=== PATIENT | female | born 1980 | race Caucasian/White ===

== ENCOUNTER 2018-04-06 00:55 | Emergency (ER) | payer BC, SELFPAY ==
[2018-04-06 00:56] VITALS: BP 110/78; PULSE 87; RESP 14; TEMP 36.4; O2SAT 98; BMI 35.4
--- NOTE | 2018-04-06 01:06 | ED.RN ---
THIS NURSE CALLED FOR AN EKG FOR THIS PATIENT, WHILE THIS NURSE WAS STILL TRIAGING THE PATIENT, DR SANTANA CAME IN AND STATED THAT WE WOULD JUST MONITOR THE PATIENT FOR 30-60 MINUTES, NO EKG WAS DONE PER DR SANTANA
--- NOTE | 2018-04-06 02:03 | ED.VISSUMM ---
- ER Visit Summary Date of Service: 04/06/18 Chief Complaint: Palpitations History of Present Illness: The patient is a 37 F who states she did not feel well antonio from bed and felt palpitations. She did not check her pulse to determine rate. She states she had one cup of coffee morning. She does not drink caffeinated beverages. She denies fever, chills night sweats. She denies weight loss. She denied nausea, diaphoresis or shortness of breath. She denies leg pain, swelling discoloration. She denies any URI symptoms. She was seen September 2016 for similar symptoms and had a negative workup. She states she recently had similar symptoms with transported to [place] emergency department and workup at that time was negative. Physical Examination: Vital signs noted and normal. BMI 35.4. HEENT exam is unremarkable. Heart is regular without murmur, gallop or rub. S1 and S2 are normal. Lungs are clear to auscultation with good movement of air bilaterally. Abdomen soft nontender. Bowel sounds present normal. There is no asymmetry, swelling, discoloration, leg vein distention, palpable cords or tenderness along the distribution of the deep venous system. Distal pulses upper and lower extremities symmetric. Alert oriented x3 with a nonfocal neurologic exam. Test Results: Monitor reveals a sinus rhythm. She was observed for 1 hour with no ectopy or tachycardia noted. Emergency Department Course and Treatment: Since this is her third ER visit in the 2 prior resulted in negative workup and presently her vitals are normal we will place on monitor and observe for any ectopy or rapid heartbeat. Treatment Plan: Appropriate home-going instructions avoid caffeinated beverages Disposition: Discharged home in stable condition with parents Impression: Palpitations This note was generated with [employer] a Division of [employer] software. It may contain incorrect words, spelling, and punctuation that were not noted in review of the chart prior to signing ED Disposition - Plan for ED Patient: Disposition: Home or Assisted Living Chief Complaint: Palpitations Instructions: ED Palpitations Referrals: Enrike Lund MD [Primary Care Provider] - As Needed
[2018-04-06 02:13] VITALS: BP 119/78; PULSE 74; RESP 20; O2SAT 97
== END 2018-04-06 02:13 | disposition home or self-care (01) ==
PROVIDERS: Emergency Provider Emergency Medicine; Family Provider Family Medicine; PCP Family Medicine
DX: R00.2 Palpitations (principal); E66.9 Obesity, unspecified; R03.0 Elevated blood-pressure reading, without diagnosis of hypertension
CPT/HCPCS: 99282

== ENCOUNTER → 2018-06-29 07:07 | Outpatient (CLI) | payer BC, SELFPAY ==
[2018-06-29 10:36] LABS: Anion Gap 8 (5-15); BUN 14 mg/dL (7-18); BUN/Creat Ratio 18.4 RATIO (10-20); Calcium,Total 9.5 mg/dL (8.5-10.1); Chloride 107 mmol/L (98-107); Cholesterol 211 mg/dL (200); Creatinine, Serum 0.76 mg/dL (0.55-1.02); EST Glomerular Filtration Rate 92 mL/min (>60); Est Glom Filt Rate - Afr Amer 111 mL/min (>60); Glucose 95 mg/dL (74-106); High Density Lipoprotein 56 mg/dL; Potassium 4.9 mmol/L (3.5-5.1); Sodium Level 143 mmol/L (136-145); Thyroid Stim Hormone (TSH) 2.48 uIU/mL (0.358-3.74); Triglycerides 89 mg/dL; Very Low Density Lipoprotein 18 mg/dL (5-40)
== END ==
PROVIDERS: Family Provider Family Medicine; PCP Family Medicine; Referring Provider Family Medicine; Visit Provider Family Medicine
DX: R81 Glycosuria (principal)
CPT/HCPCS: 36415; 80048; 80061; 84443

== ENCOUNTER → 2018-12-05 | Outpatient (CLI) | payer BC, SELFPAY ==
[2018-12-05 15:00] LABS: Cholesterol 198 mg/dL (200); High Density Lipoprotein 58 mg/dL; Triglycerides 64 mg/dL; Very Low Density Lipoprotein 13 mg/dL (5-40)
== END | disposition home or self-care (01) ==
LOC: LAB.FUTURE 12:48
PROVIDERS: Family Provider Family Medicine; PCP Family Medicine; Referring Provider Family Medicine; Visit Provider Family Medicine
DX: Z00.00 Encounter for general adult medical examination without abnormal findings (principal)
CPT/HCPCS: 36415; 80061

== ENCOUNTER → 2020-06-12 | Outpatient (CLI) | payer BC, SELFPAY | END | disposition home or self-care (01) | LOC: LABSPEC 15:14 | PROVIDERS: PCP Family Medicine; Visit Provider Family Medicine | DX: Z20.822 Contact with and (suspected) exposure to COVID-19 (principal) | CPT/HCPCS: 87635; U0005; U0003 ==

== ENCOUNTER 2020-07-08 00:43 | Emergency (ER) | payer BC, SELFPAY ==
[2020-07-08 00:48] VITALS: BP 138/88; PULSE 72; RESP 14; TEMP 37.2; O2SAT 94; BMI 37.2
[2020-07-08 01:01] VITALS: BP 138/88; PULSE 66; RESP 16; TEMP 37.2; O2SAT 94
--- NOTE | 2020-07-08 01:09 | ED.DCSUM_ITS ---
- ER Visit Summary Date of Service: 07/08/20 Chief Complaint: Covid positive with increasing shortness of breath History of Present Illness: The patient is a [address] of positive Covid test on Monday. Patient states that she has become more short of breath. Denies fevers had some chills and a cough nonproductive. She is currently on prednisone for an allergic reaction prescribed by her primary care physician. She denies any chest pain. No hemoptysis. No leg pain swelling. No history of DVT or PE. No recent travel, surgery or immobilization. Physical Examination: 39-year-old female no acute distress. Vital signs stable afebrile pulse ox 94% on room air no signs hypoxia. HEENT exam unremarkable. Neck nontender no lymphadenopathy no JVD. Lungs clear to auscultation bilaterally. Heart regular rhythm rate about 70 no murmur. Chest were nontender. Abdomen soft nontender normal bowel sounds no peritoneal signs. Patient moving all 4 extremities. Neurovascular intact. Calves nontender without edema or cords. Back nontender. Neurologically she is awake alert with no focal motor deficits. Test Results: CBC white count of 14 hemoglobin 14 no bands chemistries normal normal creatinine and gap. Chest x-ray normal no acute process portable 1 view interpreted by myself also read by the radiologist and agrees. Emergency Department Course and Treatment: Female Covid positive test on Monday becoming more short of breath. Chest x-ray and labs. Repeat exam patient is doing well at 2:55 AM. She and I went over all of her test. She will be referred to outpatient monoclonal antibody therapy infusion for consideration for that treatment. She is comfortable being discharged to home. Treatment Plan: Outpatient therapy. Refer to monoclonal antibody. Return if worse follow-up with your doctor if not improving. Disposition: Discharge Impression: Dyspnea with Covid 19 This note was generated with [employer] dictation software. It may contain incorrect words, spelling, and punctuation that were not noted in review of the chart prior to signing ED Disposition - Plan for ED Patient: Referrals: Enrike Lund MD [Primary Care Provider] -
--- NOTE | 2020-07-08 01:50 | RAD_ITS ---
STUDY: X-RAY CHEST REASON FOR EXAM: Female, 39 years old. PT COVID POSITIVE WITH INCREASING SOB.CONCERNED FOR PNEUMONIA. TECHNIQUE: Single frontal view of the chest. COMPARISON: None. FINDINGS: The lungs are clear and expanded. There is no demonstrated pleural abnormality. Normal size heart. Normal mediastinum and marjorie. Normal visualized pulmonary arteries. Normal visualized aortic arch and descending thoracic aorta. Normal visualized thoracic spine. Normal visualized ribs, clavicles, and shoulders. There is no demonstrated abnormality of the visualized soft tissue structures of the upper abdomen. RAD/Chest 1 View (Portable) IMPRESSION: Normal x-ray examination of the chest. Electronically Signed: Piter Fine MD at 2:33 EST Tel , Service support ,
[2020-07-08 01:57] LABS: Absolute Lymphocyte Count 2.19 X10^3/uL (0.83-4.51); Basophil# 0.03 X10^3/uL; Basophil% 0.2 % (0-1); Hematocrit 43.8 % (37-47); Hemoglobin 14.6 g/dL (12.0-15.0); Lymphocyte # 2.19 X10^3/ul (4.0); Lymphocyte % 15.6 % (19-41); Mean Corp Hgb Conc 33.3 g/dL (32-36); Mean Corpuscular Hgb 29.4 pg (27.0-32.0); Mean Corpuscular Volume 88.1 fL (81-99); Mean Platelet Vol. 10.1 fl (6.2-12.0); Monocyte# 0.78 X10^3/uL; Monocyte% 5.6 % (0-10); NRBC Flagged by Analyzer 0 % (0-5); Neutrophil # 10.97 X10^3/uL (2.7-7.7); Neutrophil % 78.2 % (47-70); Platelet Count 366 K/mm3 (150-450); RBC Distribution Width CV 12.7 % (11.6-14.6); RBC Distribution Width SD 40.9 fl (35.1-43.9); Red Blood Count 4.97 M/mm3 (4.2-5.4)
[2020-07-08 02:07] LABS: Anion Gap 5 (5-15); BUN 9 mg/dL (7-18); BUN/Creat Ratio 13.8 RATIO (10-20); Calcium,Total 8.8 mg/dL (8.5-10.1); Chloride 110 mmol/L (98-107); Creatinine, Serum 0.65 mg/dL (0.55-1.02); EST Glomerular Filtration Rate 109 mL/min (>60); Est Glom Filt Rate - Afr Amer 132 mL/min (>60); Estimated Creatinine Clearance 85.12 ml/min; Glucose 112 mg/dL (74-106); Potassium 3.8 mmol/L (3.5-5.1); Sodium Level 141 mmol/L (136-145)
--- NOTE | 2020-07-08 03:02 | ED.DEP ---
ED Disposition - Plan for ED Patient: Disposition: Home or Assisted Living Instructions: Coronavirus Disease 2019 (COVID-19): Overview, ED - COVID Monoclonal AB Infusion ... Referrals: Enrike Lund MD [Primary Care Provider] - 3-5 Days if not improving Additional Instructions: Fluids and rest. Tylenol and Motrin as needed. The hospital will contact you to discuss the possibility of monoclonal outpatient infusion therapy. Return emergency department if you are feeling a lot worse or follow-up with your doctor if not improving.
== END 2020-07-08 03:18 | disposition home or self-care (01) ==
PROVIDERS: Emergency Provider Emergency Medicine; PCP Family Medicine
DX: U07.1 COVID-19 (principal); R06.00 Dyspnea, unspecified
CPT/HCPCS: 71045; 80048; 85025; 99284; A4216